=== PATIENT | male | born 1945 | race Caucasian/White ===

== ENCOUNTER 2020-07-05 11:36 | Outpatient (CLI) | payer MEDICARE, SELFPAY | END 2020-07-05 11:37 | disposition home or self-care (01) | LOC: ANHCOVIDVC 11:36 | PROVIDERS: PCP Internal Medicine | DX: Z23 Encounter for immunization (principal) | CPT/HCPCS: 0001A; 91300 ==

== ENCOUNTER 2020-07-26 11:40 | Outpatient (CLI) | payer MEDICARE, SELFPAY | END 2020-07-26 11:41 | disposition home or self-care (01) | LOC: ANHCOVIDVC 11:40 | PROVIDERS: PCP Internal Medicine | DX: Z23 Encounter for immunization (principal) | CPT/HCPCS: 0002A; 91300 ==

== ENCOUNTER 2021-04-21 01:00 | Day surgery (SDC) | payer MEDICARE, SELFPAY ==
[2021-04-11 15:21] VITALS: BMI 28.4
[2021-04-21 06:16] VITALS: BP 164/78; PULSE 65; RESP 20; TEMP 37; O2SAT 100; BMI 30.4
[2021-04-21] MEDS: LACTATED RINGERS 1,000 ML 150 ML IV CONT (06:27)
--- NOTE | 2021-04-21 07:00 | WPDANESEPPF ---
Anes - Initial Pre Proc Eval Procedure: Operation Date: 04/21/21 07:30 Proposed Procedures p Screening Colonoscopy - Cruz Miller MD Date/Time: 04/21/21 07:00 Surgeon: Cruz Miller MD Pre Op Diagnosis: hx of colon polyps Patient Data Age: 75 Gender: M Height: 1.78 m Weight: 96.2 kg Last Vital Signs Temp 37.0 C 04/21/21 06:16 Pulse 65 04/21/21 06:16 Resp 20 04/21/21 06:16 BP 164/78 H 04/21/21 06:16 Pulse Ox 100 04/21/21 06:16 Allergies Allergy/AdvReac Type Severity Reaction Status Date / Time No Known Allergies Allergy Verified 04/21/21 06:15 Home Medications Medication Instructions Recorded Confirmed Type multivitamin 1 tablet PO DAILY 01/22/19 04/11/21 History omega-3 fatty acids-vitamin E 2,000 mg PO DAILY cap 01/22/19 04/11/21 History 1,000 mg capsule verapamil 240 mg tablet,extended See Rx Instructions .ROUTE 05/17/20 04/11/21 Rx release .COMPLEX #90 tablet pravastatin 40 mg tablet See Rx Instructions .ROUTE 12/09/20 04/11/21 Rx .COMPLEX #90 tablet cholecalciferol (vitamin D3) 25 25 mcg PO DAILY 03/01/21 04/11/21 History mcg (1,000 unit) capsule Patient hx anesthesia problems: none Family hx anesthesia problems: none Results Review: All pre-operative results and documents have been reviewed as part of the pre-operative evaluation. [facility] Past Medical History Medical History Essential hypertension with goal blood pressure less than 140/90 Mixed hyperlipidemia ELI (obstructive sleep apnea) Family History Family History Sibling Patient's sister is in good health Family history of renal failure Patient's sister is Mother Patient's mother is Father Patient's father is Acute myocardial infarction Social History Social History Smoking packs per day: 1 Smoking cigarettes per day: 20.0 Years smoked: 30 Smoking pack-years: 30.00 Smoking status: Former smoker Tobacco type: cigarettes Second hand tobacco smoke exposure: No Smoking end date: 03/25/84 Alcohol intake: current Drinks per week: 7 Alcohol use details: daily Substance use: never Substance use type: does not use Living arrangements: alone Spiritual care concerns: No Anes - Eval Final PreProcedure Day of Procedure 04/21/21 07:00 Patient weight: obese Heart: regular rate and rhythm Lungs: clear to auscultation Airway: Mallampati scale class II Neurological: alert and oriented Last oral intake: >/= 8 hours ASA classification: III Emergent: no Anesthetic plan: proceed Anesthesia type and monitoring: general GIVS and standard monitoring Results Review: All pre-operative results and documents have been reviewed as part of the pre-operative evaluation. Informed Consent: The patient's anesthetic plan and its attendant risks and benefits were discussed with the patient/family/POA. Questions were solicited and answers provided to the satisfaction of the patient/family/POA.
--- NOTE | 2021-04-21 07:52 | WPDGICN ---
Assessment and Plan Assessment and plan (1) Hx of adenomatous colonic polyps: Code(s): Z86.010 - Personal history of colonic polyps Status: Acute Assessment and Plan: Patient has a history of recurrent adenomatous colon polyps. He has a distant history of carcinoma within the colon polyp. Plan is for surveillance colonoscopies at every 3-5 year intervals. GI Consult Note Consult date/time: 04/21/21 07:52 HPI: Alo Guerrier Sr. is a 75 year old male Presents for surveillance colonoscopy. 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 He has had multiple colon polyps since that time with follow-up colonoscopies. Most recently 2018. Patient's current weight appetite bowel movements are normal. He denies abdominal pain. He has had no bleeding. Family history is noncontributory. He presents today for neoplasia screening colonoscopy. Review of Systems Review of Systems: All systems reviewed & are unremarkable except as noted in HPI and below PMFSH Past Medical History Medical History Essential hypertension with goal blood pressure less than 140/90 Mixed hyperlipidemia ELI (obstructive sleep apnea) Family History Family History Sibling Patient's sister is in good health Family history of renal failure Patient's sister is Mother Patient's mother is Father Patient's father is Acute myocardial infarction Social History Social History Smoking packs per day: 1 Smoking cigarettes per day: 20.0 Years smoked: 30 Smoking pack-years: 30.00 Smoking status: Former smoker Tobacco type: cigarettes Second hand tobacco smoke exposure: No Smoking end date: 03/25/84 Alcohol intake: current Drinks per week: 7 Alcohol use details: daily Substance use: never Substance use type: does not use Living arrangements: alone Spiritual care concerns: No Meds Home Medications and Allergies Home Medications Medication Instructions Recorded Confirmed Type multivitamin 1 tablet PO DAILY 01/22/19 04/11/21 History omega-3 fatty acids-vitamin E 2,000 mg PO DAILY cap 01/22/19 04/11/21 History 1,000 mg capsule verapamil 240 mg tablet,extended See Rx Instructions .ROUTE 05/17/20 04/11/21 Rx release .COMPLEX #90 tablet pravastatin 40 mg tablet See Rx Instructions .ROUTE 12/09/20 04/11/21 Rx .COMPLEX #90 tablet cholecalciferol (vitamin D3) 25 25 mcg PO DAILY 03/01/21 04/11/21 History mcg (1,000 unit) capsule Allergies Allergy/AdvReac Type Severity Reaction Status Date / Time No Known Allergies Allergy Verified 04/21/21 06:15 Vital Signs Vital Signs - 24 hr 04/21/21 06:16 Temperature 98.6 F Pulse Rate 65 Respiratory Rate 20 Blood Pressure 164/78 H Pulse Oximetry 100 Exam Narrative: Physical exam reveals patient to be alert. Vital signs stable. HEENT exam is unremarkable. Patient is anicteric. Lungs are clear to auscultation and percussion. Heart is without murmur or extra sounds. Abdomen bowel sounds are present soft nontender with no organomegaly. Digital external rectal exam is normal.
[2021-04-21] MEDS: SIMETHICONE ORAL SUSPENSION 20 MG/0.3 ML 30 ML BOTTLE 0.6 ML IRRIGATION (07:55)
[2021-04-21 07:57] VITALS: BP 139/76; PULSE 61; RESP 15; O2SAT 99
[2021-04-21 08:07] VITALS: BP 149/80; PULSE 62; RESP 16; O2SAT 100
[2021-04-21 08:17] VITALS: BP 160/87; PULSE 62; RESP 30; O2SAT 100
== END 2021-04-21 08:24 | disposition home or self-care (01) ==
PROVIDERS: PCP Internal Medicine; Visit Provider Internal Medicine Gastroenterology
PROC: 0DJD8ZZ Inspection of Lower Intestinal Tract, Via Natural or Artificial Opening Endoscopic (ICD-10-PCS; CPT 45378; principal; 2021-04-21 07:30)
DX: Z12.11 Encounter for screening for malignant neoplasm of colon (principal); D12.3 Benign neoplasm of transverse colon; K64.8 Other hemorrhoids; K57.30 Diverticulosis of large intestine without perforation or abscess without bleeding; Z85.038 Personal history of other malignant neoplasm of large intestine; I10 Essential (primary) hypertension; E78.2 Mixed hyperlipidemia; G47.33 Obstructive sleep apnea (adult) (pediatric); Z87.891 Personal history of nicotine dependence; E66.9 Obesity, unspecified; Z68.30 Body mass index [BMI] 30.0-30.9, adult
CPT/HCPCS: 45385; 88305; J2704; J7120

== ENCOUNTER 2021-11-08 09:00 | Emergency (ER) | payer MEDICARE, SELFPAY ==
--- NOTE | ~2021-11-08 | CT_ITS ---
EXAMINATION: CT abdomen pelvis wo/w con DATE: 11/08/2021 12:56 INDICATION: Hematuria TECHNIQUE: Computed tomography (CT) of the abdomen and pelvis was performed without intravenous contr ast. CT of the abdomen and pelvis was then performed with a total of 130 mL Omnipaque 350 intravenous contrast using a double-bolus technique for simultaneous opacification of the renal parenchyma and r enal collecting system. The dose-length product (DLP) was 1481.87 mGy-cm. Automated exposure control and iterative reconstruction technique were employed. COMPARISON: None FINDINGS: The lung bases are clear. The heart size is normal. There is a small sliding hiatal hernia cysts of the liver measure up to 1.7 cm. Punctate calcifications in an otherwise normal spleen likely represent healed granulomatous disease. The pancreas, gallbladder, and adrenal glands are normal. Hy poattenuating lesions in the kidneys, measuring up to 4 mm on the right, are too small to characteriz e but likely represent cysts. There is a 3.4 x 2.3 cm enhancing mass in the anterior aspect of the le ft mid kidney. No stones are identified in the kidneys, ureters, or bladder. There is no hydronephros is or hydroureter. The bladder is partially decompressed by Garcia catheter. No pathologically enlarge d abdominal or pelvic lymph nodes are identified. There is no free intraperitoneal gas or evidence of bowel obstruction. There are bilateral L5 pars defects with grade 1 anterolisthesis of L5 on S1. IMPRESSION: 1. Left kidney mass consistent with renal cell carcinoma. Reviewed, dictated and finalized at location A.
[2021-11-08 09:01] VITALS: BP 152/66; PULSE 67; RESP 20; TEMP 36.6; O2SAT 100
[2021-11-08 09:44] LABS: RBC Urine >75 /hpf (0-2)
--- NOTE | 2021-11-08 09:44 | ED.MALEGU ---
HPI - Male Genitourinary General Chief complaint: Urogenital-Male Stated complaint: bleeding out of my penis Time Seen by Provider: 11/08/21 09:12 Source: patient Mode of arrival: ambulatory Limitations: no limitations History of Present Illness HPI Narrative: This is a 76 year old male that presents to the ER for hematuria. Reports he went to urinate when he woke up and instead he saw bright red blood. Does report some clots. He is not on any blood thinners. Denies fever, dysuria, flank pain, or vomiting. Related Data Home Medications Medication Instructions Recorded Confirmed multivitamin 1 tablet PO DAILY 01/22/19 09/08/21 omega-3 fatty acids-vitamin E 2,000 mg PO DAILY 01/22/19 09/08/21 1,000 mg capsule cholecalciferol (vitamin D3) 25 25 mcg PO DAILY 03/01/21 09/08/21 mcg (1,000 unit) capsule Allergies Allergy/AdvReac Type Severity Reaction Status Date / Time No Known Allergies Allergy Verified 11/08/21 09:00 Review of Systems Review of Systems: CONSTITUTIONAL: Denies fever GASTROINTESTINAL: Denies abdominal pain, nausea, vomiting GENITOURINARY: Reports hematuria. Denies dysuria All systems reviewed & are unremarkable except as noted in HPI and below PMFSH Past Medical History Medical History (Updated 11/08/21 @ 13:38 by Elyssa Sheehan PA-C) Essential hypertension with goal blood pressure less than 140/90 Mixed hyperlipidemia ELI (obstructive sleep apnea) Family History Family History Sibling Patient's sister is in good health Family history of renal failure Patient's sister is Mother Patient's mother is Father Patient's father is Acute myocardial infarction Social History Social History Smoking packs per day: 1 Smoking cigarettes per day: 20.0 Years smoked: 30 Smoking pack-years: 30.00 Smoking status: Former smoker Tobacco type: cigarettes Second hand tobacco smoke exposure: No Smoking end date: 03/25/84 Alcohol intake: current Drinks per week: 7 Alcohol use details: daily Substance use: never Substance use type: does not use Spiritual care concerns: No Exam Narrative: GENERAL: Well-appearing, well-nourished, and in no acute distress. HEAD: Normocephalic, atraumatic. EYES: EOMI. CHEST: Clear to auscultation. No respiratory distress. No wheezes rales or rhonchi HEART: Regular rate and rhythm. No murmur heard. Normal peripheral pulses. ABDOMEN: Soft, nontender, nondistended, normal active bowel sounds. EXTREMITIES: Normal range of motion. No edema. SKIN: Warm, dry, no rash. NEURO: No focal deficits. Alert and oriented x3. PSYCH: Normal mood and affect Course Consultations Consultation #1: Spoke with Dr. Willingham about patient and work-up who will follow-up in clinic. Garcia will stay in place until follow-up. Also recommends antibiotics for possible UTI, patient will be placed on ciprofloxacin. Date: 11/08/21 Time: 13:42 Vital Signs Vital signs: Vital Signs Temperature 97.8 F 11/08/21 09:01 Pulse Rate 67 11/08/21 09:01 Respiratory Rate 20 11/08/21 09:01 Blood Pressure 152/66 H 11/08/21 09:01 Pulse Oximetry 100 11/08/21 09:01 Oxygen Delivery Room Air 11/08/21 09:01 Temperature 97.8 F 11/08/21 09:01 Pulse Rate 76 11/08/21 14:15 Respiratory Rate 16 11/08/21 14:15 Blood Pressure 141/84 H 11/08/21 14:15 Pulse Oximetry 98 11/08/21 14:15 Oxygen Delivery Room Air 11/08/21 09:01 MDM - Male Genitourinary MDM Narrative Medical decision making narrative: Patient presents the emergency department for gross hematuria. Patient not reporting any other complaints. He is afebrile and nontoxic-appearing. CBC metabolic panel without concerning findings. UA with evidence of possible infection. This will be sent for culture. CT scan of the abdo
[2021-11-08 09:50] LABS: Add Urine Microscopic? YES; Appearance Urine Cloudy (Clear); Bilirubin Urine 2+ (Negative); Blood Urine 3+ (Negative); Color Urine Red (Yellow); Glucose Urine UA Negative (Negative); Ketones Urine Trace mg/dL (Negative); Leukocyte Esterase Ur Trace LEU/UL (Negative); Nitrate Urine Negative (Negative); Protein Urine 3+ mg/dL (Negative); pH Urine 5.5 (5.0-9.0)
--- NOTE | 2021-11-08 10:04 | PC.NURSE ---
attempted insertion of [address] catheter without success. attempting smaller catheter.
--- NOTE | 2021-11-08 10:07 | PC.NURSE ---
no smaller size catheters available for 3 way. MRITA Bergeron made aware.
[2021-11-08] MEDS: LIDOCAINE HCL 2% GEL UROJET 10 ML PKG (10:38)
[2021-11-08 12:15] LABS: Basophils Percent Auto 0.6 % (0.2-1.2); Eosinophils Absolute Auto 0.2 K/mm3 (0-0.3); Eosinophils Percent Auto 2.6 % (0-4.4); Hemoglobin 14.7 g/dL (14.0-18.0); Immature Granulocyte Absolute 0.02 K/mm3 (0.00-0.031); Immature Granulocyte Percent A 0.3 % (0-0.5); Lymphocytes Absolute Auto 0.59 K/mm3 (0.9-3.2); Lymphocytes Percent Auto 9.5 % (18.3-44.2); Mean Corpuscular HGB Conc 33.4 g/dl (32-36); Mean Corpuscular Hemoglobin 31.7 pg (26-34); Mean Platelet Volume 8.9 fl (7.4-10.4); Monocytes Absolute Auto 0.5 K/mm3 (0.1-0.6); Monocytes Percent Auto 7.4 % (2.6-8.5); Neutrophils Percent Auto 79.6 % (45.5-73.1); Platelet Count Result 182 k/mm3 (150-375); Red Blood Count 4.63 M/mm3 (4.6-6.20); Red Cell Distribution Width 13.6 % (11.5-14.5); White Blood Count 6.2 K/mm3 (4.5-10.0)
[2021-11-08 12:20] VITALS: BP 136/84; PULSE 84; RESP 16; O2SAT 99
[2021-11-08 12:35] LABS: Anion Gap 8 mmol/L (8-16); Blood Urea Nitrogen 15 mg/dL (9-20); Calcium 9.3 mg/dL (8.4-10.2); Carbon Dioxide 25 mmol/L (22-30); Chloride 99 mmol/L (98-107); Estimated CRCL calculation 62 ml/min; Estimated Glomerular Filt Rate > 60; Glucose 106 mg/dL (65-110); Potassium 4.5 mmol/L (3.4-5.0); Sodium 132 mmol/L (137-145)
[2021-11-08 12:36] LABS: Estimated CRCL calculation 62 ml/min; Estimated Glomerular Filt Rate > 60
[2021-11-08 14:15] VITALS: BP 141/84; PULSE 76; RESP 16; O2SAT 98
== END 2021-11-08 14:00 | disposition home or self-care (01) ==
PROVIDERS: Physician Assistant; Emergency Provider Emergency Medicine; PCP Internal Medicine
DX: N39.0 Urinary tract infection, site not specified (principal); N28.89 Other specified disorders of kidney and ureter; R31.0 Gross hematuria; I10 Essential (primary) hypertension; E78.2 Mixed hyperlipidemia; G47.33 Obstructive sleep apnea (adult) (pediatric); Z87.891 Personal history of nicotine dependence
CPT/HCPCS: 36415; 51700; 74178; 80048; 81001; 85025; 87086; 87088; 99283; 99284; Q9967

== ENCOUNTER 2022-08-17 09:00 | Outpatient (CLI) | payer MEDICARE, SELFPAY ==
--- NOTE | ~2022-08-17 | CT_ITS ---
CT of the Abdomen: Indication: Oncocytoma Technique: 2.5 mm axial scans were obtained through the abdomen prior to and following intravenous a dministration of 100 cc of Omnipaque 350. Dose reduction technique was used on this scan by utilizing automated exposure control and iterative reconstruction technique. The dose-length product (DLP) was 951.27 mGy-cm. COMPARISON: 11/08/2021 Findings: Scans through the lung bases are unremarkable. Stable small hepatic cysts noted. The spleen, pancreas, gallbladder, adrenals and right kidney are wi thin normal limits. There is postoperative or postablative change at the anterior aspect of the left kidney at the site of the previously identified mass lesion. No definite residual pathologic mass og samuel identified. No evidence of aortic aneurysm. No lymphadenopathy. Visualized bowel loops are unremarkable. No ascites. Bilateral L5 pars interarticularis defects are noted, with 9 mm anterolisthesis of L5 over S1. Impression: Postoperative or postablative change at the anterior aspect of the left kidney, at the site of the pr evious identified mass lesion. Correlate with treatment history. No definite residual pathologic mass clearly identified, but continued follow-up should be considered, based upon pathologic results. Bilateral L5 pars interarticularis defects, with 9 mm anterolisthesis of L5 over S1. Reviewed, dictated and finalized at location . Impression: Postoperative or postablative change at the anterior aspect of the left kidney, at the site of the previous identified mass lesion. Correlate with treatment h istory. No definite residual pathologic mass clearly identified, but continued follow-up should be considered, based upon pathologic results. Bilateral L5 pars interarticularis defects, with 9 mm anterolisthesis of L5 ove r S1.
[2022-08-17 09:30] LABS: Estimated Glomerular Filt Rate > 60
== END 2022-08-17 09:01 | disposition home or self-care (01) ==
PROVIDERS: PCP Family Medicine; Visit Provider Urology
DX: D36.9 Benign neoplasm, unspecified site (principal)
CPT/HCPCS: 74170; Q9967

== ENCOUNTER → 2023-03-07 08:57 | Outpatient (CLI) | payer MEDICARE, SELFPAY ==
--- NOTE | ~2023-03-07 | CT_ITS ---
Non-contrast CT scan of the Abdomen and Pelvis Clinical indication: Renal mass Technique: 2.5 mm axial scans were obtained through the abdomen and pelvis without intravenous or or al contrast. Dose reduction technique was used on this scan by utilizing automated exposure control a nd iterative reconstruction technique. The dose-length product (DLP) was 743.68 mGy-cm. COMPARISON: 08/17/2022 Findings: Images through the lung bases reveal no abnormalities. The liver, spleen, pancreas, gallbladder, right kidney, and adrenals appear normal. There is stable p ostoperative versus post ablative change at the anterior aspect of the left kidney. There are atheros clerotic calcifications of the aorta. There is no evidence of bowel obstruction. Images through the pelvis were performed. There is no evidence of ascites or lymphadenopathy. Possibl e mild urinary bladder wall thickening. No pelvic mass. No ascites. Stable bilateral L5 pars interart icularis defects, with 9 mm anterolisthesis of L5 over S1. Impression: Stable postoperative/post ablative change at the left kidney. No recurrent mass lesion evident. Possible mild urinary bladder wall thickening. Correlate for cystitis. Reviewed, dictated and finalized at location . D BANK TECHNICIAN Impression: Stable postoperative/post ablative change at the left kidney. No recurrent mass lesion evident. Possible mild urinary bladder wall thickening. Correlate for cystitis.
== END ==
PROVIDERS: PCP Family Medicine; Visit Provider Urology
DX: N28.89 Other specified disorders of kidney and ureter (principal)
CPT/HCPCS: 74176

== ENCOUNTER 2024-03-10 12:45 | Outpatient (CLI) | payer MEDICARE, SELFPAY ==
--- NOTE | ~2024-03-10 | CT_ITS ---
Non-contrast CT scan of the Abdomen and Pelvis Clinical indication: Renal mass Technique: 2.5 mm axial scans were obtained through the abdomen and pelvis without intravenous or or al contrast. Dose reduction technique was used on this scan by utilizing automated exposure control a nd iterative reconstruction technique. The dose-length product (DLP) was 701.30 mGy-cm. COMPARISON: 03/07/2023 Findings: Images through the lung bases reveal no abnormalities. Stable postoperative change at the anterior aspect of the left kidney. No suspicious mass lesion evid ent on noncontrast exam. No renal stone or hydronephrosis on either side. The liver, spleen, pancreas, gallbladder, and adrenals appear normal. There are atherosclerotic calci fications of the aorta. . There is no evidence of bowel obstruction. Images through the pelvis were performed. There is no evidence of ascites or lymphadenopathy. Urinary bladder unremarkable. No pelvic mass seen. Bilateral L5 pars interarticularis defects are present, w ith 9 mm anterolisthesis of L5 over S1. Impression: Stable postoperative change left kidney. No distinct evidence for recurrent mass lesion on noncontras t exam. Reviewed, dictated and finalized at location . CLINICAL COORDINATOR Impression: Stable postoperative change left kidney. No distinct evidence for recurrent mas s lesion on noncontrast exam.
== END 2024-03-10 12:46 | disposition home or self-care (01) ==
PROVIDERS: PCP Family Medicine; Visit Provider Urology
DX: N28.89 Other specified disorders of kidney and ureter (principal)
CPT/HCPCS: 74176